=== PATIENT | male | born 1940 | race Caucasian/White ===

== ENCOUNTER 2017-11-25 15:35 | Observation (INO) | payer MEDICARE, OTHER ==
[2017-11-25] MEDS ORDERED: SODIUM CHLORIDE 0.9% 1,000 ML IV ONE (16:25)
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
[2017-11-25 16:47] LABS: Basophils % (A) 0 %; Eosinophils # (A) 0.1 k/uL (0-0.7); Eosinophils % (A) 2 %; HCT 39.4 % (39.0-53.0); HGB 12.7 gm/dL (13.0-17.5); Lymphocytes % (A) 21 %; MCH 27.1 pg (25.0-35.0); MCHC 32.2 g/dL (31.0-37.0); MCV 84.2 fL (80.0-100.0); Mean Platelet Volume 7.5; Monocytes # (A) 0.3 k/uL (0-1.0); Monocytes % (A) 5 %; Neutrophils # (A) 3.5 k/uL (1.3-7.7); Neutrophils % (A) 70 %; Platelet Count 130 k/uL (150-450); RBC 4.67 m/uL (4.30-5.90); RDW 14.2 % (11.5-15.5); WBC 4.9 k/uL (3.8-10.6)
[2017-11-25 16:56] LABS: ALT 44 U/L (21-72); AST 26 U/L (17-59); Albumin 3.7 g/dL (3.5-5.0); Alkaline Phosphatase 62 U/L (38-126); Anion Gap 6 mmol/L; Blood Urea Nitrogen 17 mg/dL (9-20); Carbon Dioxide 26 mmol/L (22-30); Chloride 109 mmol/L (98-107); Glucose 143 mg/dL (74-99); Potassium 4.2 mmol/L (3.5-5.1); Sodium 141 mmol/L (137-145); Total Bilirubin 1.2 mg/dL (0.2-1.3); Total Protein 6.1 g/dL (6.3-8.2)
[2017-11-25 16:59] LABS: Glucose,Whole Blood 140 mg/dL (75-99)
[2017-11-25 17:11] LABS: Prothrombin Time 9.9 sec (9.0-12.0)
[2017-11-25 17:19] LABS: Partial Thromboplastin Time 21.8 sec (22.0-30.0)
[2017-11-25 17:22] LABS: Appearance,Urine Cloudy (Clear); Bacteria,Urine Rare /hpf; Bilirubin,Urine Negative (Negative); Blood,Urine Negative (Negative); Color,Urine Yellow; Glucose,Urine (UA) Negative (Negative); Ketones,Urine Negative (Negative); Leukocyte Esterase,Urine Negative (Negative); Mucus,Urine Rare /hpf; Nitrite,Urine Negative (Negative); Protein,Urine Negative (Negative); Specific Gravity,Urine 1.015 (1.001-1.035); WBC,Urine 25 /hpf (0-5)
[2017-11-25 17:24] LABS: Creatine Kinase 34 U/L (55-170)
[2017-11-25 17:28] LABS: Amphetamine Screen,Urine Not Detected (NotDetected); Barbiturate Screen,Urine Not Detected (NotDetected); Benzodiazepines Screen,Urine Not Detected (NotDetected); Cocaine Screen,Urine Not Detected (NotDetected); Methadone Screen, Urine Not Detected (NotDetected); Opiate Screen,Urine Not Detected (NotDetected); Oxycodone Screen, Urine Not Detected (NotDetected); Phencyclidine Screen,Urine Not Detected (NotDetected); Tricyclic Antidepressant,Urine Detected (NotDetected); Urn Cannabinoid Scrn Not Detected (NotDetected)
[2017-11-25 17:36] LABS: Creatine Kinase MB 1.4 ng/mL (0.0-2.4); Troponin I <0.012 ng/mL (0.000-0.034)
--- NOTE | 2017-11-25 17:38 | CT ---
EXAMINATION TYPE: CT brain wo con DATE OF EXAM: 11/25/2017 COMPARISON: None HISTORY: lethargic CT DLP: 906.7 mGycm Automated exposure control for dose reduction was used. FINDINGS: There is diffuse cerebral cortical atrophy. There is extensive hypodensity in both frontal lobes and more on the left side consistent with old infarcts. There is also old right occipital lobe cortical i nfarct. There is no midline shift. There is no sign of intracranial hemorrhage. Calvarium is intact. 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 NO ACUTE INTRACRANIAL ABNORMALITY.
--- NOTE | 2017-11-25 17:40 | XR ---
EXAMINATION TYPE: XR chest 2V DATE OF EXAM: 11/25/2017 COMPARISON: NONE HISTORY: Lethargy TECHNIQUE: Frontal and lateral views of the chest are obtained. FINDINGS: There is no heart failure nor confluent pneumonic infiltrate. Costophrenic angles are clint r. There are chest leads. Bony thorax is intact. IMPRESSION: No active cardiopulmonary disease. No change
[2017-11-25] MEDS ORDERED: ACETAMINOPHEN TAB 325 MG TAB PO PRN (17:49)
[2017-11-25] MEDS ORDERED: ONDANSETRON 4 MG/2 ML VIAL IVP PRN (17:49)
[2017-11-25] MEDS ORDERED: NALOXONE 0.4 MG/ML 1 ML VIAL IV PRN (17:49)
[2017-11-25] MEDS ORDERED: TOBRAMYCIN 0.3% OPHTH DROPS 5 ML BTL BOTH EYES PRN (17:57)
[2017-11-25] MEDS ORDERED: GABAPENTIN 300 MG CAP PO PRN (17:57)
[2017-11-25] MEDS ORDERED: IBUPROFEN 200 MG TAB PO PRN (17:57)
[2017-11-25] MEDS ORDERED: ACYCLOVIR 5% TOPICAL PRN (17:57)
[2017-11-25] MEDS ORDERED: METHYL SALICYLATE/MENTHOL CREAM 5 OZ TOPICAL PRN (17:57)
[2017-11-25] MEDS ORDERED: predniSONE 20 MG TAB PO SCH (18:00)
[2017-11-25] MEDS ORDERED: ERGOCALCIFEROL 50,000 UNIT CAP PO SCH (18:00)
[2017-11-25] MEDS: BACLOFEN 10 MG TAB PO SCH (20:25)
[2017-11-25] MEDS: ASPIRIN 81 MG PO SCH (20:26)
[2017-11-25] MEDS: PANTOPRAZOLE 40 MG TABLET PO SCH (20:26)
[2017-11-25] MEDS: MAGNESIUM OXIDE 400 MG TAB PO SCH (20:26)
[2017-11-25] MEDS: QUEtiapine 100 MG TAB PO SCH (20:26)
[2017-11-25] MEDS: risperiDONE 1 MG TAB PO SCH (20:26)
[2017-11-26 03:55] VITALS: BMI 39.0
[2017-11-26] MEDS: MAGNESIUM OXIDE 400 MG TAB PO SCH ×2 (07:51→20:09)
[2017-11-26] MEDS: PANTOPRAZOLE 40 MG TABLET PO SCH ×2 (07:51→20:09)
[2017-11-26] MEDS: FOLIC ACID-VIT B COMPLEX-VIT C 1 CAP PO SCH (07:51)
[2017-11-26] MEDS: LISINOPRIL 5 MG TAB PO SCH (07:51)
[2017-11-26] MEDS: ACYCLOVIR 800 MG TAB PO SCH (07:51)
[2017-11-26] MEDS: LORATADINE 10 MG TAB PO SCH (07:51)
[2017-11-26] MEDS: BACLOFEN 10 MG TAB PO SCH ×2 (07:52→20:09)
[2017-11-26] MEDS: ASPIRIN 81 MG PO SCH (20:09)
[2017-11-26] MEDS: risperiDONE 1 MG TAB PO SCH (20:09)
[2017-11-26] MEDS: QUEtiapine 100 MG TAB PO SCH (20:09)
[2017-11-27] MEDS: PANTOPRAZOLE 40 MG TABLET PO SCH ×2 (10:13→21:49)
[2017-11-27] MEDS: ACYCLOVIR 800 MG TAB PO SCH (10:13)
[2017-11-27] MEDS: MAGNESIUM OXIDE 400 MG TAB PO SCH ×2 (10:13→21:48)
[2017-11-27] MEDS: BACLOFEN 10 MG TAB PO SCH ×2 (10:13→21:49)
[2017-11-27] MEDS: LISINOPRIL 5 MG TAB PO SCH (10:13)
[2017-11-27] MEDS: FOLIC ACID-VIT B COMPLEX-VIT C 1 CAP PO SCH (10:13)
[2017-11-27] MEDS: LORATADINE 10 MG TAB PO SCH (10:13)
--- NOTE | 2017-11-27 15:54 | HP ---
HISTORY AND PHYSICAL CHIEF COMPLAINT: Mental status changes and failure to thrive. HISTORY OF PRESENT ILLNESS: This 76-year-old white male has been in a retirement and has been deteriorating apparently over the last several months. He is eating less and he is less alert. There has been no specific incident cited. He has had no fever and he has had no vomiting, cough, diarrhea, bleeding, etc. Review of systems is unobtainable. Past medical history, family history, and personal and social histories are all unobtainable at this time. PHYSICAL EXAMINATION: Blood pressure 116/68 with a pulse of 58 and respirations of 12. He is afebrile. In general he appeared to be slender and arousable, but a little bit lethargic. Head, ears, eyes, nose, mouth and throat revealed the absence of the left eye. Carotids and neck veins seem to be normal. Breath sounds are heard on both sides. The cardiac exam sounded like he was in sinus rhythm with no murmurs. The abdomen is flat and soft and there are no masses. Extremities were normal. Neurologically he had no gross deficits, but he was unable to communicate intelligibly. IMPRESSION: 1. Failure to thrive with anorexia and weight loss, etiology unknown. 2. Dementia. 3. Status post enucleation of left eye. PLAN: 1. Bed rest. 2. IV fluids. 3. Further evaluation to look for the etiology of his problem. 4. Guardian has made him NO CODE. 5. Discharge planning. MMODL / IJN: [id number] /
--- NOTE | 2017-11-27 16:06 | PN ---
PROGRESS NOTE DATE OF SERVICE: 11/26/2017. CHIEF COMPLAINT: Failure to thrive and dementia. HISTORY OF PRESENT ILLNESS: This patient's condition is unchanged. No abnormalities have been identified so far. We will work on discharge planning. MMODL / IJN: [id number] /
[2017-11-27] MEDS: risperiDONE 1 MG TAB PO SCH (21:49)
[2017-11-27] MEDS: QUEtiapine 100 MG TAB PO SCH (21:49)
[2017-11-27] MEDS: ASPIRIN 81 MG PO SCH (21:49)
[2017-11-28] MEDS: ACYCLOVIR 800 MG TAB PO SCH (08:46)
[2017-11-28] MEDS: BACLOFEN 10 MG TAB PO SCH ×2 (08:46→20:28)
[2017-11-28] MEDS: LISINOPRIL 5 MG TAB PO SCH (08:46)
[2017-11-28] MEDS: PANTOPRAZOLE 40 MG TABLET PO SCH ×2 (08:47→20:28)
[2017-11-28] MEDS: FOLIC ACID-VIT B COMPLEX-VIT C 1 CAP PO SCH (08:47)
[2017-11-28] MEDS: ASPIRIN 81 MG PO SCH (08:48)
[2017-11-28] MEDS: MAGNESIUM OXIDE 400 MG TAB PO SCH ×2 (08:48→20:28)
[2017-11-28] MEDS: LORATADINE 10 MG TAB PO SCH (08:48)
[2017-11-28] MEDS: risperiDONE 1 MG TAB PO SCH (20:28)
[2017-11-28] MEDS: QUEtiapine 100 MG TAB PO SCH (20:28)
--- NOTE | 2017-11-28 20:37 | PN ---
PROGRESS NOTE DATE OF SERVICE: 11/27/2017. CHIEF COMPLAINT: Failure to thrive, mental status changes. HISTORY OF PRESENT ILLNESS: This gentleman has been stable. Vital signs are normal. He has no abnormal lab studies. This probably all represents progression of mental status problems and dementia. PHYSICAL EXAM: Arousable, but not appropriate. Chest is clear. Cardiac exam is normal. Abdomen is soft, nontender. Extremities are normal. IMPRESSION: 1. Dementia. 2. Failure to thrive. 3. General debility. PLAN: If nothing else develops, he will be [facility] or to a residential. MMODL / IJN: [id number] /
--- NOTE | 2017-11-28 20:58 | PN ---
PROGRESS NOTE DATE OF SERVICE: 11/28/17 CHIEF COMPLAINT: Mental status changes and dementia and general debility. HISTORY OF PRESENT ILLNESS: This gentleman has been stable with no interval change. PHYSICAL EXAM: Vital signs normal. Chest is clear. Cardiac exam is normal. Abdomen is soft, nontender. IMPRESSION: 1. Mental status changes. 2. Progressive dementia. 3. General debility. PLAN: He will either be discharged back to the residential tomorrow or skilled nursing. MMODL / IJN: [id number] /
[2017-11-29 06:17] VITALS: BP 134/73; PULSE 81; RESP 17; TEMP 98.6
[2017-11-29] MEDS: BACLOFEN 10 MG TAB PO SCH (08:35)
[2017-11-29] MEDS: ACYCLOVIR 800 MG TAB PO SCH (08:35)
[2017-11-29] MEDS: FOLIC ACID-VIT B COMPLEX-VIT C 1 CAP PO SCH (08:35)
[2017-11-29] MEDS: LISINOPRIL 5 MG TAB PO SCH (08:35)
[2017-11-29] MEDS: LORATADINE 10 MG TAB PO SCH (08:36)
[2017-11-29] MEDS: MAGNESIUM OXIDE 400 MG TAB PO SCH (08:36)
[2017-11-29] MEDS: PANTOPRAZOLE 40 MG TABLET PO SCH (08:36)
--- NOTE | 2017-11-29 19:35 | DS ---
DISCHARGE SUMMARY CHIEF COMPLAINT: Mental status changes and failure to thrive. HISTORY OF PRESENT ILLNESS AND PHYSICAL EXAMINATION: Details of this man's history and physical can be found in the initial workup. LABORATORY STUDIES: While he was in the hospital he had laboratory studies, details of which can be found in the laboratory section of his chart. COURSE IN THE HOSPITAL: After admission he was placed on bedrest, started on intravenous fluids, and workup was begun to look for etiology for his chronic deterioration. None was found. It was felt this probably was related to progressive dementia and debility. It was felt he could be returned to the correction on November 29, and he will go there on his usual activity, diet and medication. They are also requesting that he go on to hospice, and this will be ordered. FINAL DIAGNOSES: 1. Mental status changes. 2. General debility. 3. Progressive dementia. 4. Status post enucleation of the left eye. OPERATIONS: None. CONSULTATIONS: None. He is improved. MMROSELYN / HERBERN: [id number] /
== END 2017-11-29 15:43 ==
LOC: EC 15:35 → 5MS5E 17:49 → INTOOBSV 17:49 → 5MS5E 18:29
PROVIDERS: ADMIT Family Medicine; ATTEND Family Medicine
DX: R41.82 Altered mental status, unspecified (principal); R53.1 Weakness; R51 Headache; R53.83 Other fatigue; R63.4 Abnormal weight loss; R62.7 Adult failure to thrive; R63.0 Anorexia; R53.81 Other malaise; F03.90 Unspecified dementia, unspecified severity, without behavioral disturbance, psychotic disturbance, mood disturbance, and anxiety; K21.9 Gastro-esophageal reflux disease without esophagitis; E78.5 Hyperlipidemia, unspecified; M19.90 Unspecified osteoarthritis, unspecified site; I12.9 Hypertensive chronic kidney disease with stage 1 through stage 4 chronic kidney disease, or unspecified chronic kidney disease; N18.9 Chronic kidney disease, unspecified; F32.9 Major depressive disorder, single episode, unspecified; Z79.899 Other long term (current) drug therapy; Z79.82 Long term (current) use of aspirin; Z87.891 Personal history of nicotine dependence; H57.8 Other specified disorders of eye and adnexa; Z90.01 Acquired absence of eye
CPT/HCPCS: 99285 ×2; 96360 ×2; 96361 ×2; 36415; 94760; 93005; 97162; 80053; 82550; 82553; 84484; 85025; 85610; 85730; 81001; 87040; 80306; 87086; 71046; 70450; G0378 ×5